=== PATIENT | female | born 1940 | race Caucasian/White ===

== ENCOUNTER 2018-11-04 08:29 | Inpatient (IN) ==
[2018-11-04] MEDS ORDERED: Ondansetron 4 MG/2 ML VIAL IVP ONE (09:03)
[2018-11-04 09:04] LABS: Bilirubin,Urine Negative (Negative); Blood,Urine Negative (Negative); Clarity,Urine Clear (Clear); Color,Urine Yellow (Yellow); Glucose,Urine (UA) Normal (Normal); Ketones,Urine Negative (Negative); Leukocyte Esterase,Urine Trace (Negative); Nitrite,Urine Negative (Negative); Protein,Urine 30 mg/dL (Neg-Trace); Specific Gravity,Urine 1.015 (1.010-1.025); Urobilinogen,Urine Normal (Normal)
--- NOTE | 2018-11-04 09:07 | Emergency Department Note ---
Disposition Clinical Impression: Hyponatremia, Nausea, Hypokalemia Disposition: Admitted As Inpatient Condition: Good Referrals: Sourav Logan MD [Primary Care Provider] - Forms: ED Satisfaction Letter Time of Disposition: 10:17 Nausea/Vomiting/Diarrhea HPI - General Chief complaint: ED Nausea/Vomiting/Diarrhea Stated complaint: nausea Time Seen by Provider: 11/04/18 08:39 Source: patient, family () Mode of arrival: ambulatory Limitations: no limitations Nursing Notes Reviewed: Yes Vital Signs Reviewed: Yes - History of Present Illness HPI Narrative: 78-year-old female history of hypertension presents to the emergency department with nausea. Her husbands at bedside and assist with history. States over the past 12 days she is been having persistent nausea without vomiting. Typically starts in the morning and progresses throughout the day. Nothing seems to make it worse. She has had a decrease in appetite as a result. She denies any chest pain, shortness of breath or abdominal pain. Denies any diarrhea recent illness sick contacts. She has never had this before. She follows with pain management Dr. Sylvester who has been giving her cortisone shots in her back which she believes could be the cause of it. She is received a total of 2 doses it was recently evaluated yesterday by him. He does not believe it is medication related and told or if it does I get better to come here to be evaluated in the ED which she did. She was given Phenergan which she states has been helping with her nausea but then it comes back. No prior abdominal surgeries. She does not drink any alcohol. No history of cardiac ischemic disease. Pt Subjective Complaint: nausea - Related Data Home Medications Medication Instructions Recorded Confirmed Lisinopril [Zestril] 40 mg PO DAILY 11/04/18 11/04/18 hydroCHLOROthiazide 25 mg PO DAILY 11/04/18 11/04/18 [Hydrochlorothiazide] Allergies Allergy/AdvReac Type Severity Reaction Status Date / Time No Known Allergies Allergy Verified 10/05/18 13:23 All systems ED: reviewed and negative except as stated. Review of Systems: As Per HPI Constitutional: Denies: fever, chills ENT ED: Denies: congestion Cardiovascular: Denies: chest pain Respiratory: Denies: cough, dyspnea Gastrointestinal: Reports: nausea. Denies: abdominal pain, vomiting, diarrhea Genitourinary: Denies: dysuria Musculoskeletal: Denies: back pain Integumentary: Denies: rash, abrasion Past Medical History - Past Medical History Attestation: Yes The following information was validated with the patient. Source: patient Physical Exam - General Limitations: no limitations General appearance: alert - Head Head exam: atraumatic, normocephalic, normal inspection - Eye Eye exam: Present: normal appearance, EOMI. Absent: scleral icterus - ENT ENT exam: normal exam, normal oropharynx, mucous membranes moist - Neck Neck exam: Present: full ROM, trachea midline - Chest Chest inspection: Present: normal inspection, symmetric chest wall rise - Respiratory Respiratory exam: Present: normal lung sounds bilaterally - Cardiovascular Cardiovascular exam: Present: regular rate, normal rhythm, normal heart sounds - Abdominal Exam Abdominal exam: Present: soft, Non-Tender, normal bowel sounds. Absent: tenderness, distention, guarding, rebound, rigidity, Raza's sign, tenderness at McBurney's Point - Back Exam Back exam: Present: normal inspection, full ROM. Absent: tenderness, CVA tenderness (R), CVA tenderness (L) - Neurological Exam Neurological exam: Present: alert, oriented X3 - Psychiatric Psychiatric exam: Present: normal affect, normal mood - Skin Skin exam: Present: warm, dry, intact, normal color. Absent: rash, cyanosis, diaphoresis Course Course Narrative: Patient presents with persistent nausea without vomiting. No history of cardiac ischemic disease. Denies any chest pain shortness of breath. Examination is unremarkable. She does not have any abdominal discomfort. At this time will evaluate for possible atypical chest pain presentation with EKG troponin and blood work. Will hold off on CT scan at this time. Zofran for nausea. Patient is agreeable to this plan. - Reevaluation(s) Reevaluation #1: Review of her labs shows hyponatremia hypokalemia.. She reports a history of hyponatremia but is not on any supplements. She does not know how low it typically is. She does take hydrochlorothiazide but did not take a dose today given her nausea. No recent changes to her medications. This could be the cause of her nausea. Troponin 0.03. Continues to deny any chest pain. Abdominal exam remains unremarkable without any tenderness. At this time will plan for admission for continued observation as well as symptom control for nausea. Closely monitor electrolytes. Patient is agreeable to this plan. Impression is hyponatremia and intractable nausea. Time: 10:14 - Consultations Consultation #1: Spoke with on-call hospitalist jackie Strong to admit for hyponatremia hypokalemia intractable nausea. Requests CT scan of the abdomen and pelvis and chest which she will follow up on results Time: 10:56 Vital Signs Temperature 97.7 F 11/04/18 08:29 Pulse Rate 84 11/04/18 08:29 Respiratory Rate 16 11/04/18 08:29 Blood Pressure 153/85 11/04/18 08:29 O2 Sat by Pulse Oximetry 97 11/04/18 08:29 Temperature 97.7 F 11/04/18 09:10 Pulse Rate 75 11/04/18 09:10 Respiratory Rate 16 11/04/18 09:10 Blood Pressure 157/76 11/04/18 09:10 O2 Sat by Pulse Oximetry 98 11/04/18 09:10 Oxygen Delivery Oxygen Delivery Room Air Nausea/Vomiting/Diarrhea - MDM Narrative Medical decision making narrative: Patient was discussed with my attending physician who agrees with ED management and final disposition. They independently evaluated the patient. Please refer to their attestation to this encounter for additional information. This note was generated by [employer] voice recognition software and as a result grammatical or spelling errors may occur using this program. - Medical Records Medical records reviewed: Yes I reviewed the patient's medical records. - Lab Data Lab results reviewed: Yes I reviewed the patient's lab results. Result diagrams: 11/04/18 09:10 11/04/18 09:10 Lab Results 11/04/18 11/04/18 11/04/18 Range/Units 08:47 09:10 09:10 WBC 7.9 (4.3-11.1) K/mcL RBC 3.77 L (3.82-4.97) M/mcL Hgb 13.0 (11.5-15.4) g/dL Hct 35.1 L (35.3-44.9) % MCV 93.1 (83.0-100.0) fL MCH 34.5 H (28.0-33.3) pg MCHC 37.0 H (31.6-35.5) g/dL RDW 11.3 L (11.5-14.5) % Plt Count 195 (140-400) K/mcL MPV 8.9 L (9.4-12.4) fL Immature Gran % 0.4 (0-4) % Seg Neutrophils % 88.0 % Lymphocytes % 7.1 % Monocytes % 4.2 % Eosinophils % 0.0 % Basophils % 0.3 % Neutrophils # 6.9 (1.6-8.9) K/mcL Lymphocytes # 0.6 (0.6-4.6) K/mcL Monocytes # 0.3 (0.0-1.3) K/mcL Eosinophils # 0.0 (0.0-0.6) K/mcL Basophils # 0.0 (0.0-0.2) K/mcL Sodium 121 L (136-145) mEq/L Potassium 3.0 L (3.5-5.1) mEq/L Chloride 85 L (98-107) mEq/L Carbon Dioxide 28 (23-29) mEq/L BUN 9 (8-23) mg/dL Creatinine 0.67 (0.60-1.20) mg/dL Est GFR ( Amer) > 60 (> 60) Est GFR (Non-Af Amer) > 60 (> 60) BUN/Creatinine Ratio 13 (6-26) Glucose 117 H (70-105) mg/dL Calculated Osmolality 252 L (280-300) Calcium 9.6 (8.6-10.3) mg/dL Total Bilirubin 0.4 (0.3-1.0) mg/dL AST 21 (13-39) Units/L ALT 13 (7-52) Units/L Alkaline Phosphatase 52 (34-104) Units/L Troponin I 0.03 (< 0.04) ng/mL Serum Total Protein 6.4 (6.4-8.9) g/dL Albumin 4.3 (3.5-5.7) g/dL Globulin 2.1 L (2.4-3.5) g/dL Albumin/Globulin Ratio 2.0 (1.1-2.2) Lipase 23 (11-82) Units/L Urine Color Yellow (Yellow) Urine Clarity Clear (Clear) Urine pH 7.0 (5.0-8.0) pH Units Ur Specific [place] 1.015 (1.010-1.025) Urine Protein 30 H (Neg-Trace) mg/dL Urine Glucose (UA) Normal (Normal) mg/dL Urine Ketones Negative (Negative) mg/dL Urine Blood Negative (Negative) Urine Nitrite Negative (Negative) Urine Bilirubin Negative (Negative) Urine Urobilinogen Normal (Normal) mg/dL Ur Leukocyte Esterase Trace H (Negative) Urine Microscopic WBC 0-3 (0-3) per hpf Ur Squamous Epith Cells Few (None-Few) per lpf Urine Bacteria Few (None-Few) per hpf Ur Culture Indicated? YES A (NO) - EKG Data EKG attestation: Yes I reviewed and interpreted this EKG. EKG results narrative: EKG performed 09 normal sinus rhythm 75 beats per minute, normal axis, good R wave progression, no ST elevation or depression QT QTC 437 [id number]. There is no old EKG available for comparison at this time. No acute ischemic changes.
[2018-11-04 09:12] LABS: Bacteria,Urine Few per hpf (None-Few); Squamous Epithelial Cell,Urine Few per lpf (None-Few); WBC,Urine 0-3 per hpf (0-3)
[2018-11-04 09:34] LABS: Basophils % 0.3 %; Hematocrit 35.1 % (35.3-44.9); Immature Granulocytes % 0.4 % (0-4); Lymphocytes # 0.6 K/mcL (0.6-4.6); Lymphocytes % 7.1 %; Mean Corpuscular Hemoglobin 34.5 pg (28.0-33.3); Mean Corpuscular Volume 93.1 fL (83.0-100.0); Mean Platelet Volume 8.9 fL (9.4-12.4); Monocytes # 0.3 K/mcL (0.0-1.3); Monocytes % 4.2 %; Neutrophils # 6.9 K/mcL (1.6-8.9); Platelet Count 195 K/mcL (140-400); Red Blood Count 3.77 M/mcL (3.82-4.97); Red Cell Distribution Width 11.3 % (11.5-14.5); White Blood Count 7.9 K/mcL (4.3-11.1)
[2018-11-04 09:53] LABS: Alanine Aminotransferase 13 Units/L (7-52); Albumin 4.3 g/dL (3.5-5.7); Alkaline Phosphatase 52 Units/L (34-104); Aspartate Amino Transferase 21 Units/L (13-39); BUN/Creatinine Ratio 13 (6-26); Bilirubin,Total 0.4 mg/dL (0.3-1.0); Blood Urea Nitrogen 9 mg/dL (8-23); Calcium 9.6 mg/dL (8.6-10.3); Carbon Dioxide 28 mEq/L (23-29); Chloride 85 mEq/L (98-107); Globulin 2.1 g/dL (2.4-3.5); Glucose 117 mg/dL (70-105); Lipase 23 Units/L (11-82); Osmolality,Calculated 252 (280-300); Sodium 121 mEq/L (136-145); Total Protein 6.4 g/dL (6.4-8.9); eGFR For African Americans > 60 (> 60); eGFR For Non-African Americans > 60 (> 60)
[2018-11-04] MEDS ORDERED: 0.9 % Sodium Chloride 1,000 ML IVC ONE ×2 (09:57→12:09)
[2018-11-04 10:00] LABS: Troponin I 0.03 ng/mL (< 0.04)
[2018-11-04 12:11] LABS: Hepatitis B Surface Antibody 3.55 mIU/mL
[2018-11-04] MEDS ORDERED: Acetaminophen 325 MG TABLET PO PRN (12:16)
[2018-11-04] MEDS ORDERED: Naloxone 0.4 MG/ML INJ IVP PRN (12:16)
[2018-11-04] MEDS ORDERED: *HR* HYDROcodone/Acet 5/325 mg TABLET PO PRN (12:16)
[2018-11-04] MEDS ORDERED: Ondansetron 4 MG/2 ML VIAL IVP PRN (12:16)
[2018-11-04 12:21] LABS: Hepatitis B Surface Antigen Nonreactive (Nonreactive)
[2018-11-04] MEDS ORDERED: 0.9 % Sodium Chloride 1,000 ML IVC SCH (12:30)
[2018-11-04 13:05] LABS: Thyroid Stimulating Hormone 1.092 mcIU/mL (0.340-5.600)
--- NOTE | 2018-11-04 13:17 | Nephrology Consult Note ---
Date of Encounter: 11/04/18 Time of Encounter: 13:17 Assessment and Plan (1) Hypertension Current Visit: Yes Status: Acute Titrate her blood pressure medication as needed. discontinue any thiazide diuretics. Qualifiers: Qualified Code(s): I10 - Essential (primary) hypertension (2) Hypokalemia Current Visit: Yes Status: Acute Replace potassium as needed. Check magnesium level. (3) Hyponatremia Current Visit: Yes Status: Acute Patient with multifactorial hyponatremia. We do not have any old labs to know what her baseline sodium level is. For now she has acute hyponatremia that is secondary to persistent nausea and ongoing thiazide diuretic use. I agree with hydration, however, patient's serum sodium should be monitored closely as she may auto-correct rather rapidly. We will check urine and serum osmolality. Recommend keeping her serum sodium less than 130 until 9 AM tomorrow. Thank you for inviting me to participate in the care of your patient. We will continue to follow with you. (4) Nausea Current Visit: Yes Status: Acute History of Present Illness - Reason for Consult Consult date: 11/04/18 hyponatremia - Chief Complaint hyponatremia - History of Present Illness Ms. Bruno is a 78-year-old woman with a history of hypertension who presents secondary to persistent nausea. The patient reports that she has had nausea for at least 12 days following cortisone injection in her back. She denies abdominal pain, vomiting, tinnitus, vertigo, chest pain, dyspnea, constipation, or diarrhea. She reports having a remote episode of nausea similar to this, but cannot recall what the etiology was. She reports that she feels somewhat better since admission. [facility] was consulted to assist with the management of her hyponatremia. Past Med Surg Social Fam HX - Past Medical History Medical history: cancer, hypertension Additional medical history: breast cancer Psychiatric history: no psych history - Past Surgical History Additional surgical history: lumpectomy - Social History Smoking Status: Never smoker Smokeless Tobacco Status: No Alcohol use: none Drug use: none Medications and Allergies Gabapentin [Neurontin] 300 mg PO TID 11/04/18 [History] Lisinopril [Zestril] 40 mg PO DAILY 11/04/18 [History] hydroCHLOROthiazide [Hydrochlorothiazide] 25 mg PO DAILY 11/04/18 [History] traZODone [TraZODone] 50 mg PO HS 11/04/18 [History] Allergy/AdvReac Type Severity Reaction Status Date / Time No Known Allergies Allergy Verified 10/05/18 13:23 Review of Systems All Systems: reviewed and no additional remarkable complaints except as stated (As documented in the history of present illness) Exam - Vital Signs Vital signs: Initial Vital Signs Temp Pulse Resp BP Pulse Ox 97.7 F 84 16 153/85 97 11/04/18 08:29 11/04/18 08:29 11/04/18 08:29 11/04/18 08:29 11/04/18 08:29 Vital Signs - Last 8 Hours Temp Pulse Resp BP Pulse Ox 11/04/18 12:59 16 138/63 11/04/18 11:29 81 18 133/61 98 11/04/18 09:10 97.7 F 75 16 157/76 98 11/04/18 08:29 97.7 F 84 16 153/85 97 Intake and Output 11/03/18 11/04/18 11/04/18 23:59 07:59 15:59 Intake Total 1000 / 1000 Balance 1000 / 1000 Intake: IV Fluids 1000 / 1000 0.9 % Sodium Chloride 1,000 ML 1000 / 1000 @ 999 mls/hr IVC .Q1H1M ONE Rx# :[id number] Other: Stool Characteristics Normal for Patient Weight 58.513 kg Patient Weight 11/04/18 23:59 Weight 58.513 kg - General Appearance General appearance: well-developed, well-nourished EENT: ATNC Neck: supple Respiratory: clear Cardiology: no edema, regular rate Gastrointestinal: no tenderness Integumentary: warm and dry Neurologic: alert and oriented x3 Musculoskeletal: no cyanosis Psychiatric: mood/affect appropriate Results - Lab Results 11/04/18 09:10 11/04/18 09:10 Most recent lab results 11/04/18 09:10 Calcium 9.6 Consult Discharge Plan - Plan Referrals: Sourav Logan MD [Primary Care Provider] -
--- NOTE | 2018-11-04 13:35 | Internal Med History&Physical ---
Date of Encounter: 11/04/18 Time of Encounter: 11:00 Internal Medicine - H&P: HPI Chief complaint: nausea History of present illness: Ms. Dai is a 78 year old female with a past medical history of hypertension on chlorothiazide on as well as lisinopril who presented with intractable nausea over the last 2 weeks. The patient denied any vomiting however she stated that she has a pain management treatment where steroids was injected in her back and since then she started having the symptoms. The patient stated that over the last several days, her symptoms become persistent and progressively worsening. The patient was evaluated by the ER staff and has laboratory data revealed low sodium of 121 as well as hypokalemia. She stated that she have history of hy ponatremia in the past and she was managed increasing salt in her diet. He also stated that at some point it was thought that she might have adrenal insufficiency and she was treated with steroids. Steriods was discontinued later based on the advice of her primary care physician. The patient is taking hydrochlorothiazide for almost 15 years. The patient was admitted for further evaluation and management. Past Med Surg Social Fam HX - Past Medical History Medical history: cancer, hypertension Additional medical history: breast cancer Psychiatric history: no psych history - Past Surgical History Additional surgical history: lumpectomy - Social History Smoking Status: Never smoker Smokeless Tobacco Status: No Alcohol use: none Drug use: none Internal Medicine - H&P: Meds Gabapentin [Neurontin] 300 mg PO DAILY PRN 11/04/18 [History] Gabapentin [Neurontin] 300 mg PO TID 11/04/18 [History] Lisinopril [Zestril] 40 mg PO DAILY 11/04/18 [History] Ondansetron ODT [Zofran ODT] 4 mg PO Q8H PRN 11/04/18 [History] Promethazine [Phenergan] 25 mg PO Q6HR PRN 11/04/18 [History] hydroCHLOROthiazide [Hydrochlorothiazide] 25 mg PO DAILY 11/04/18 [History] predniSONE [PredniSONE] 5 mg PO DAILY 11/04/18 [History] traZODone [TraZODone] 50 mg PO BID 11/04/18 [History] Allergy/AdvReac Type Severity Reaction Status Date / Time No Known Allergies Allergy Verified 11/04/18 22:12 All Systems PM: A 10-system review of systems was performed and is negative for pertinent findings except as documented above in the HPI. - Constitutional Vitals: Temp Pulse Resp BP Pulse Ox 97.7 F 81 16 138/63 98 11/04/18 09:10 11/04/18 11:29 11/04/18 12:59 11/04/18 12:59 11/04/18 11:29 General appearance: Present: A&O X 3 Exam: ` - Head Head exam: Present: atraumatic, normocephalic - Neck Neck exam general surgery: Present: supple, trachea midline. Absent: lymphadenopathy - Respiratory Respiratory exam: Present: CTAB. Absent: accessory muscle use, rales, rhonchi, wheezes - Cardiovascular Cardiovascular exam: Present: RRR, +S1, +S2. Absent: diastolic murmur, gallop, rubs, systolic murmur - GI/Abdominal GI/Abdominal exam: Present: normal bowel sounds, soft, no peritoneal signs. Absent: distended, tenderness - Extremities Exam Extremities exam: Present: warm, radial pulses palpable and symmetrical. Absent: calf tenderness, cyanotic, pedal edema - Neurological Exam Neurological exam: Present: CN II-XII intact, oriented X3, no focal deficits. Absent: pronater drift, facial droop, speech deficit Internal Med - H&P Results - Labs CBC & Chem 7: 11/05/18 00:59 11/05/18 00:59 Labs: Short CBC 11/04/18 Range/Units 09:10 WBC 7.9 (4.3-11.1) K/mcL Hgb 13.0 (11.5-15.4) g/dL Hct 35.1 L (35.3-44.9) % Plt Count 195 (140-400) K/mcL Neutrophils # 6.9 (1.6-8.9) K/mcL BMP 11/04/18 09:10 Sodium 121 L Potassium 3.0 L Chloride 85 L Carbon Dioxide 28 BUN 9 Creatinine 0.67 Glucose 117 H Calcium 9.6 Cardiac Enzymes 11/04/18 Range/Units 09:10 Troponin I 0.03 (< 0.04) ng/mL Liver Function 11/04/18 Range/Units 09:10 Total Bilirubin 0.4 (0.3-1.0) mg/dL AST 21 (13-39) Units/L ALT 13 (7-52) Units/L Alkaline Phosphatase 52 (34-104) Units/L Albumin 4.3 (3.5-5.7) g/dL Urine 11/04/18 Range/Units 08:47 Urine Color Yellow (Yellow) Urine Clarity Clear (Clear) Urine pH 7.0 (5.0-8.0) pH Units Ur Specific [place] 1.015 (1.010-1.025) Urine Protein 30 H (Neg-Trace) mg/dL Urine Glucose (UA) Normal (Normal) mg/dL - Impressions ITS Impressions Abdomen/Pelvis CT 11/04/18 10:56 IMPRESSION: 1. No acute intra-abdominal abnormality to account for the patient's symptoms. D/ / 11/04/2018 11:56:42 Vero Sanchez MD / Silvana Huston Interpreting Provider: Vero Sanchez MD - Assessment and Plan (1) Hyponatremia Current Visit: Yes Status: Acute Assessment and plan: The patient appears to be hypovolemic on exam, Dr. Bush with nephrology was consulted by the ER witfor further evaluation and management. He recommended we will start the patient on normal saline for IV hydration, Hold HCTZ, obtain serum osmolality, urine osmolality, urine electrolytes, TSH, cortisol level. Na target is 130, further monitoring of Na trend and management of possible rapid correction over the next 24 will be deferred to Nephrology team. (2) Hypokalemia Current Visit: Yes Status: Acute Assessment and plan: We will replace and continue to monitor potassium level. (3) Nausea Current Visit: Yes Status: Acute Assessment and plan: We will start the patient on antiemetic, CT scan of the abdomen was no contrast was obtained and bending (4) Hypertension Current Visit: Yes Status: Acute Assessment and plan: We will continue lisinopril, we will hold hydrochlorothiazide for now, we will continue to monitor blood pressure while inpatient and adjust regimen accordingly. Qualifiers: Qualified Code(s): I10 - Essential (primary) hypertension - Time Spent With Patient Total time spent is greater than 50% in coordination of care (as documented) at patient's floor/unit and/or counseling patient:
[2018-11-04] MEDS: Lisinopril 20 MG TABLET PO SCH (16:44)
[2018-11-04] MEDS: Gabapentin 300 MG CAPSULE PO SCH ×2 (16:44→20:43)
--- NOTE | 2018-11-04 16:48 | Electrocardiograph Report ---
[employer] Test Date: 2018-11-04 Pat Name: Libra Dai Department: [id number] Room: 3A13 Gender: F Apprenticeship Consultant: : [id number] Requested By: Russ Roper Order Number: [id number] Reading MD: Miko Zacarias Measurements Intervals [place] Rate: 75 P: 58 CA: 172 QRS: 22 QRSD: 99 T: 29 QT: 437 QTc: 489 Interpretive Statements Sinus rhythm Borderline prolonged QT interval Electronically Signed On 11-04-2018 16:46:48 EDT by Miko Zacarias
[2018-11-04 17:26] LABS: BUN/Creatinine Ratio 13 (6-26); Blood Urea Nitrogen 8 mg/dL (8-23); Calcium 8.4 mg/dL (8.6-10.3); Carbon Dioxide 26 mEq/L (23-29); Chloride 98 mEq/L (98-107); Glucose 125 mg/dL (70-105); Osmolality,Calculated 270 (280-300); Potassium 3.9 mEq/L (3.5-5.1); Sodium 130 mEq/L (136-145); eGFR For African Americans > 60 (> 60); eGFR For Non-African Americans > 60 (> 60)
[2018-11-04] MEDS: traZODone 50 MG TABLET PO SCH (20:43)
[2018-11-05 01:18] LABS: Basophils % 0.2 %; Immature Granulocytes % 0.2 % (0-4); Lymphocytes # 1.1 K/mcL (0.6-4.6); Lymphocytes % 20.5 %; Mean Corpuscular HGB Conc 36.2 g/dL (31.6-35.5); Mean Corpuscular Hemoglobin 34.9 pg (28.0-33.3); Mean Corpuscular Volume 96.3 fL (83.0-100.0); Mean Platelet Volume 8.9 fL (9.4-12.4); Monocytes # 0.4 K/mcL (0.0-1.3); Neutrophils # 3.9 K/mcL (1.6-8.9); Platelet Count 167 K/mcL (140-400); Red Blood Count 3.01 M/mcL (3.82-4.97); Red Cell Distribution Width 11.6 % (11.5-14.5); Segmented Neutrophils % 71.1 %; White Blood Count 5.5 K/mcL (4.3-11.1)
[2018-11-05 01:19] LABS: Hemoglobin 10.5 g/dL (11.5-15.4)
[2018-11-05 01:29] LABS: Prothrombin Time 11.1 Seconds (9.4-12.1)
[2018-11-05 01:32] LABS: Activated Partial Thrombo Time 26.5 Seconds (26.0-36.0)
[2018-11-05 01:39] LABS: Alanine Aminotransferase 11 Units/L (7-52); Albumin 3.2 g/dL (3.5-5.7); Albumin/Globulin Ratio 2.1 (1.1-2.2); Alkaline Phosphatase 38 Units/L (34-104); Aspartate Amino Transferase 16 Units/L (13-39); BUN/Creatinine Ratio 17 (6-26); Bilirubin,Total 0.3 mg/dL (0.3-1.0); Blood Urea Nitrogen 10 mg/dL (8-23); Calcium 8.4 mg/dL (8.6-10.3); Carbon Dioxide 25 mEq/L (23-29); Chloride 103 mEq/L (98-107); Chol/HDL Ratio 2.9 (0-4.9); Cholesterol 188 mg/dL (< 200); Globulin 1.5 g/dL (2.4-3.5); Glucose 113 mg/dL (70-105); HDL Cholesterol 65 mg/dL (40-59); LDL Cholesterol,Calculated 108 mg/dL (0-99); Magnesium 1.9 mg/dL (1.6-2.6); Osmolality,Calculated 278 (280-300); Phosphorous 2.6 mg/dL (2.7-4.5); Potassium 3.9 mEq/L (3.5-5.1); Sodium 134 mEq/L (136-145); Total Protein 4.7 g/dL (6.4-8.9); Triglycerides 77 mg/dL (< 150); eGFR For African Americans > 60 (> 60); eGFR For Non-African Americans > 60 (> 60)
[2018-11-05] MEDS: 0.9 % Sodium Chloride 1,000 ML IVC SCH (02:16)
--- NOTE | 2018-11-05 02:28 | Event Note ---
Date of Encounter: 11/05/18 Time of Encounter: 02:23 Notified of patient's sodium increased to 134. Requested nurse to stop normal saline infusion. Called on-call nephrology Dr. Bush who requested to start the patient on D5 at 75/h for 500 mL total and repeat labs in 4 hours.
[2018-11-05] MEDS ORDERED: D5% in Water 500 ML IVC SCH (02:30)
[2018-11-05] MEDS: Gabapentin 300 MG CAPSULE PO SCH ×3 (07:59→21:17)
[2018-11-05] MEDS: Lisinopril 20 MG TABLET PO SCH (07:59)
[2018-11-05 08:19] LABS: BUN/Creatinine Ratio 15 (6-26); Blood Urea Nitrogen 8 mg/dL (8-23); Calcium 8.9 mg/dL (8.6-10.3); Carbon Dioxide 25 mEq/L (23-29); Chloride 102 mEq/L (98-107); Glucose 103 mg/dL (70-105); Osmolality,Calculated 275 (280-300); Potassium 3.8 mEq/L (3.5-5.1); Sodium 133 mEq/L (136-145); eGFR For African Americans > 60 (> 60); eGFR For Non-African Americans > 60 (> 60)
[2018-11-05 09:54] LABS: Potassium,Urine 3.6 mEq/L; Sodium, Urine 33.9 mEq/L
--- NOTE | 2018-11-05 11:52 | Internal Med Progress Note ---
Hospitalist Progress Note - Encounter Date of Encounter: 11/05/18 Time of Encounter: 11:44 - Subjective Interval History: Patient seen and examined this morning at bedside. No acute overnight events. Has some nausea but denies any vomiting. Denied any ever had any vomiting. wants to go home. Denies any headache tingling numbness or weakness. Denies any chest pain shortness of breath abdominal pain bowel or urinary complaints. - Exam Vitals: Temp Pulse Resp BP Pulse Ox 97.9 F 63 16 122/68 96 11/05/18 10:51 11/05/18 10:51 11/05/18 10:51 11/05/18 10:51 11/05/18 10:51 Exam: General: In no acute distress. Respiratory exam: CTAB. no accessory muscle use, rales, rhonchi, wheezes Cardiovascular exam: RRR, +S1, +S2. no murmur, gallop, rubs. GI/Abdominal exam: Non-tender, Non-distended, normal bowel sounds, soft, no peritoneal signs. Extremities exam: no pedal edema, pulses palpable in b/l lower extremities. no calf tenderness Neurological exam: CN II-XII intact, AO X3, no focal deficits. Skin exam: No skin rash - Assessment and Plan (1) Hyponatremia Current Visit: Yes Status: Acute (2) Nausea Current Visit: Yes Status: Acute (3) Hypokalemia Current Visit: Yes Status: Acute (4) Hypertension Current Visit: Yes Status: Acute - Summary of Assessment and Plan Summary of Assessment and Plan: Assessment Acute Severe hyponatremia Hypokalemia Nausea Chronic HTN Plan - Patient was put on d5 overnight given overcorrection. Still overcorrected sod ium at 133 this morning. Discussed with Nephrology. Will c/w d5w at 75 cc and monitor BMp q4hr - Likely related to HCTZ use as patient denied any episode of vomiting and just had nausea. - Time Spent with Patient Total time spent is greater than 50% in coordination of care (as documented) at patient's floor/unit and/or counseling patient: Internal Medicine: Result - Labs CBC & Chem 7: 11/05/18 00:59 11/05/18 12:08 Labs: Short CBC 11/05/18 Range/Units 00:59 WBC 5.5 (4.3-11.1) K/mcL Hgb 10.5 L D (11.5-15.4) g/dL Hct 29.0 L (35.3-44.9) % Plt Count 167 (140-400) K/mcL Neutrophils # 3.9 (1.6-8.9) K/mcL BMP 11/04/18 11/04/18 11/04/18 09:10 16:20 20:37 Sodium 121 L 130 L D 131 L Potassium 3.0 L 3.9 D Chloride 85 L 98 Carbon Dioxide 28 26 BUN 9 8 Creatinine 0.67 0.64 Glucose 117 H 125 H Calcium 9.6 8.4 L 11/05/18 11/05/18 00:59 07:00 Sodium 134 L 133 L Potassium 3.9 3.8 Chloride 103 102 Carbon Dioxide 25 25 BUN 10 8 Creatinine 0.58 L 0.55 L Glucose 113 H 103 Calcium 8.4 L 8.9 Cardiac Enzymes 11/04/18 Range/Units 09:10 Troponin I 0.03 (< 0.04) ng/mL Liver Function 11/04/18 11/05/18 Range/Units 09:10 00:59 Total Bilirubin 0.4 0.3 (0.3-1.0) mg/dL AST 21 16 (13-39) Units/L ALT 13 11 (7-52) Units/L Alkaline Phosphatase 52 38 (34-104) Units/L Albumin 4.3 3.2 L (3.5-5.7) g/dL - ABG Interpretation ABG results: PT/INR, D-dimer PT 11.1 Seconds (9.4-12.1) 11/05/18 00:59 - Impressions Impressions Abdomen/Pelvis CT 11/04/18 10:56 IMPRESSION: 1. No acute intra-abdominal abnormality to account for the patient's symptoms. D/ / 11/04/2018 11:56:42 Vero Sanchez MD / Silvana Huston Interpreting Provider: Vero Sanchez MD Consult Discharge Plan - Plan Referrals: Sourav Logan MD [Primary Care Provider] - ___ (4) Hypertension Qualifiers: Qualified Code(s): I10 - Essential (primary) hypertension
[2018-11-05] MEDS: D5% in Water 500 ML IVC SCH ×2 (11:58→19:25)
[2018-11-05 13:02] LABS: BUN/Creatinine Ratio 9 (6-26); Blood Urea Nitrogen 7 mg/dL (8-23); Calcium 8.9 mg/dL (8.6-10.3); Carbon Dioxide 26 mEq/L (23-29); Chloride 101 mEq/L (98-107); Glucose 100 mg/dL (70-105); Osmolality,Calculated 276 (280-300); Potassium 3.7 mEq/L (3.5-5.1); Sodium 134 mEq/L (136-145); eGFR For African Americans > 60 (> 60); eGFR For Non-African Americans > 60 (> 60)
--- NOTE | 2018-11-05 13:31 | Nephrology Progress Note ---
Date of Encounter: 11/05/18 Time of Encounter: 13:31 - Assessment and Plan (1) Hyponatremia Current Visit: Yes Status: Acute Patient with multifactorial hyponatremia. We do not have any old labs to know what her baseline sodium level is. For now she has acute hyponatremia that is secondary to persistent nausea and ongoing thiazide diuretic use. Patient given D5 and then a dose of DDAVP to lower her sodium to 130. Ok to now allow her sodium to slowly rise Patient should be ok for discharge Wednesday. (2) Hypertension Current Visit: Yes Status: Acute Titrate her blood pressure medication as needed. discontinue any thiazide diuretics. (3) Hypokalemia Current Visit: Yes Status: Acute Replace potassium as needed. (4) Nausea Current Visit: Yes Status: Acute Subjective Principal diagnosis: hyponatremia Interval history: Patient seen. She wants to go home. She is frustrated by her environment. ROS otherwise is stable. Objective - Vital Signs Vital signs: Vital Signs Temp Pulse Resp BP Pulse Ox 11/05/18 10:51 97.9 F 63 16 122/68 96 11/05/18 06:45 97.4 F L 60 16 134/64 97 11/05/18 04:24 97.7 F 60 14 113/69 96 11/04/18 23:10 98.2 F 62 15 122/70 97 11/04/18 19:13 98.5 F 79 14 114/65 96 11/04/18 16:53 98.4 F 62 14 141/76 98 11/04/18 14:20 98 11/04/18 13:37 98.2 F 74 16 148/79 98 Intake and Output 11/04/18 11/05/18 11/05/18 23:59 07:59 15:59 Intake Total 1240 / 3240 860 / 860 Balance 1240 / 3240 860 / 860 Intake: IV Fluids 1000 / 3000 500 / 500 0.9 % Sodium Chloride 1,000 ML 1000 / 1000 @ 125 mls/hr IVC .Q8H [facility] Rx#: [id number] Dextrose 5% 500 ML @ 75 mls/hr 500 / 500 IVC .Q6H40M [facility] Rx#:[id number] Oral 240 / 240 360 / 360 Other: Meal Dinner Breakfast Percent of Meal Consumed 90% 100% # Voids 1 2 2 Weight 60.8 kg Patient Weight 11/05/18 23:59 Weight 60.8 kg - General Appearance General appearance: Present: well-developed, well-nourished EENT: Present: ATNC Neck: Present: supple Cardiology: Present: regular rate Neurologic: Present: alert and oriented x3 Musculoskeletal: Present: no cyanosis Psychiatric: Present: mood/affect appropriate - Lab 11/05/18 00:59 11/05/18 21:24 Most recent lab results 11/05/18 11/05/18 11/05/18 00:59 07:00 12:08 Calcium 8.4 L 8.9 8.9 Phosphorus 2.6 L Magnesium 1.9 Urine Creatinine Urine Sodium 11/05/18 Unknown Calcium Phosphorus Magnesium Urine Creatinine 12 Urine Sodium 33.9 Consult Discharge Plan - Plan Referrals: Sourav Logan MD [Primary Care Provider] -
[2018-11-05] MEDS ORDERED: Desmopressin Acetate SPRAY 5 ML BOTTLE NS SCH (16:15)
[2018-11-05 16:37] LABS: BUN/Creatinine Ratio 13 (6-26); Blood Urea Nitrogen 10 mg/dL (8-23); Calcium 9.1 mg/dL (8.6-10.3); Carbon Dioxide 27 mEq/L (23-29); Chloride 101 mEq/L (98-107); Glucose 107 mg/dL (70-105); Osmolality,Calculated 274 (280-300); Potassium 4.1 mEq/L (3.5-5.1); Sodium 132 mEq/L (136-145); eGFR For African Americans > 60 (> 60); eGFR For Non-African Americans > 60 (> 60)
[2018-11-05 18:45] LABS: BUN/Creatinine Ratio 17 (6-26); Blood Urea Nitrogen 12 mg/dL (8-23); Calcium 8.9 mg/dL (8.6-10.3); Carbon Dioxide 25 mEq/L (23-29); Chloride 101 mEq/L (98-107); Glucose 123 mg/dL (70-105); Osmolality,Calculated 271 (280-300); Sodium 130 mEq/L (136-145); eGFR For African Americans > 60 (> 60); eGFR For Non-African Americans > 60 (> 60)
[2018-11-05] MEDS: traZODone 50 MG TABLET PO SCH (21:17)
[2018-11-05 21:56] LABS: BUN/Creatinine Ratio 21 (6-26); Blood Urea Nitrogen 15 mg/dL (8-23); Calcium 8.7 mg/dL (8.6-10.3); Carbon Dioxide 27 mEq/L (23-29); Chloride 100 mEq/L (98-107); Glucose 110 mg/dL (70-105); Osmolality,Calculated 275 (280-300); Sodium 132 mEq/L (136-145); eGFR For African Americans > 60 (> 60); eGFR For Non-African Americans > 60 (> 60)
[2018-11-06] MEDS: Lisinopril 20 MG TABLET PO SCH (07:33)
[2018-11-06] MEDS: Gabapentin 300 MG CAPSULE PO SCH (07:33)
[2018-11-06 07:51] LABS: BUN/Creatinine Ratio 25 (6-26); Blood Urea Nitrogen 15 mg/dL (8-23); Calcium 8.9 mg/dL (8.6-10.3); Carbon Dioxide 27 mEq/L (23-29); Chloride 97 mEq/L (98-107); Glucose 90 mg/dL (70-105); Osmolality,Calculated 274 (280-300); Potassium 3.9 mEq/L (3.5-5.1); Sodium 132 mEq/L (136-145); eGFR For African Americans > 60 (> 60); eGFR For Non-African Americans > 60 (> 60)
[2018-11-06 10:23] VITALS: BP 123/71
--- NOTE | 2018-11-06 10:57 | Discharge Summary ---
- NOTES TO OUTPATIENT PROVIDER Notes to Outpatient Provider: Patient will need to follow up within 1-2 weeks. Given prescription for BMP check for hyponatremia within a week. Date of Encounter: 11/06/18 Time of Encounter: 10:54 - Discharge Diagnosis (1) Hyponatremia Priority: Primary Status: Acute (2) Nausea Priority: Secondary Status: Acute (3) Hypokalemia Priority: Primary Status: Acute (4) Hypertension Priority: Secondary Status: Acute Qualifiers: Qualified Code(s): I10 - Essential (primary) hypertension Hospital course: Ms. Dai is a 78 year old female with past medical history of hypertension and breast cancer came with complain of nausea ongoing after she received steroid injection on her back. She was found to have sodium of 121 with hypokalemia. She was admitted for further management. She was started on IV fluids. Hydrochlorothiazide was stopped. She denied any vomiting. Her sodium were corrected initially and had to be given D5 and desmopressin to slow down. Patient's sodium has been improved and currently it safe level. Patient likely had hyponatremia from hydrochlorothiazide. Patient is otherwise stable to be discharged home. We will stop hydrochlorothiazide on discharge and repeat BMP within one week. Discharge discussed with: patient, nurse, rural health consultant - Time Spent with Patient Total time spent providing and/or coordinating discharge services: Time spent: Greater than 30 minutes (40) - Discharge Medications Prescriptions: Continued Lisinopril [Zestril] 40 mg PO DAILY Gabapentin [Neurontin] 300 mg PO TID traZODone [TraZODone] 50 mg PO BID Gabapentin [Neurontin] 300 mg PO DAILY PRN PRN Reason: NERVE PAIN Ondansetron ODT [Zofran ODT] 4 mg PO Q8H PRN PRN Reason: NAUSEA/VOMITING predniSONE [PredniSONE] 5 mg PO DAILY Promethazine [Phenergan] 25 mg PO Q6HR PRN PRN Reason: NAUSEA/VOMITING Discontinued hydroCHLOROthiazide [Hydrochlorothiazide] 25 mg PO DAILY Home Medications: Gabapentin [Neurontin] 300 mg PO DAILY PRN 11/04/18 [History] Gabapentin [Neurontin] 300 mg PO TID 11/04/18 [History] Lisinopril [Zestril] 40 mg PO DAILY 11/04/18 [History] Ondansetron ODT [Zofran ODT] 4 mg PO Q8H PRN 11/04/18 [History] Promethazine [Phenergan] 25 mg PO Q6HR PRN 11/04/18 [History] predniSONE [PredniSONE] 5 mg PO DAILY 11/04/18 [History] traZODone [TraZODone] 50 mg PO BID 11/04/18 [History] Allergies/Adverse Reactions: Allergy/AdvReac Type Severity Reaction Status Date / Time No Known Allergies Allergy Verified 11/04/18 22:12 Date of admission: 11/04/18 17:12 Primary care physician: Sourav Logan MD Consults: 11/04/18 12:19 Consult to Physician [CONS] Routine Consulting Provider: Baldomero Bush Reason for Consult: HYPONATERMIA Time Notified: 12:20 Call Completed: Yes Discharging clinician: David Joiner - Constitutional Vitals: Temp Pulse Resp BP Pulse Ox 97.6 F 62 17 123/71 96 11/06/18 10:18 11/06/18 10:18 11/06/18 10:18 11/06/18 10:18 11/06/18 10:18 Exam: General: In no acute distress. Respiratory exam: CTAB. no accessory muscle use, rales, rhonchi, wheezes Cardiovascular exam: RRR, +S1, +S2. no murmur, gallop, rubs. GI/Abdominal exam: Non-tender, Non-distended, normal bowel sounds, soft, no peritoneal signs. Extremities exam: no pedal edema, pulses palpable in b/l lower extremities. no calf tenderness Neurological exam: CN II-XII intact, AO X3, no focal deficits. Skin exam: No skin rash - Patient Status Disposition: Home, Self-Care Condition: Good - Discharge Instructions Follow Up With: Sourav Logan MD [Primary Care Provider] - - Diet and Activity Activity: increase activity as tolerated
== END 2018-11-06 11:05 | disposition home or self-care (01) | DRG 641 ==
LOC: 3ANU 08:29 → EMEROOARM 08:29 → 3ANU 13:15 → SUATTDRO 17:12
PROVIDERS: ADMIT Internal Medicine Nephrology; ATTEND Internal Medicine